=== PATIENT | male | born 1935 | race Caucasian/White ===

== ENCOUNTER 2016-01-11 11:00 | Outpatient (RCR) | payer MEDICARE, OTHER ==
[2016-01-10 10:38] LABS: BASOPHILS % (AUTO) 3 % (0-2); EOSINOPHILS % (AUTO) 0 % (0-4); LYMPHOCYTES # (AUTO) 0.7 X10^3; MEAN CORPUSCULAR HEMOGLOBIN 28.7 PG (26.0-34.0); MEAN CORPUSCULAR HGB CONC 32.3 g/dL (31.0-37.0); MEAN CORPUSCULAR VOLUME 89 FL (80-100); MEAN PLATELET VOLUME 10.4 FL (6.0-9.5); MONOCYTES # (AUTO) 0.7 X10^3; MONOCYTES % (AUTO) 14 % (3-11); NEUTROPHILS # (AUTO) 3.3 X10^3; NEUTROPHILS % (AUTO) 69 % (51-67); PLATELET COUNT 507 10^3uL (150-450); WHITE BLOOD COUNT 4.78 10^3uL (4.0-11.0)
[~2016-01-11] VITALS: Ht 167.6 cm; Wt 56.7 kg
[~2016-01-11 11:00] MED LIST: ACETAMINOPHEN 325 MG TAB (TYLENOL) PO ONE
[2016-01-11] MEDS ORDERED: diphenhydrAMINE 25 MG (BENADRYL) TABLET PO ONE (11:01)
[2016-01-11] MEDS ORDERED: SODIUM CHLORIDE FLUSH 10 ML SYR IV SCH (11:05)
[2016-01-11] MEDS ORDERED: SODIUM CHLORIDE 250 ML IV SCH (11:05)
[2016-01-11 11:49] VITALS: BP 111/49
--- NOTE | 2016-01-11 13:29 | NUR ---
1240 IV started in Right hand by PAPITO Mckeon; 20 g IV removed from the Left forearm by Chinyere Gonzales RN due to infiltration. Catheter tip intact. 1320 Increase blood infusion rate to 140 mL per hour; tolerated well.
--- NOTE | 2016-01-11 13:43 | NUR ---
1335 Increased blood transfusion rate to 175 mL/hr; pt tolerated well
--- NOTE | 2016-01-11 13:59 | NUR ---
1355 Increased blood transfustion rate to 200 mL/hr; pt tolerated well.
--- NOTE | 2016-01-11 16:30 | NUR ---
1415 Infusion complete of first unit of blood 1420 Infusion of second unit of blood started at 120 mL/hour; pt tolerated well. 1520 Increased infusion rate to 175 mL/hr. pt tolerated well. 1548 Increased infusion rate to 200 mL/hr. pt tolerated well. 1621 blood transfusion of second unit of blood complete. pt tolerated well. Iv 20g in right hand was removed due to transfusion being complete. Catheter tip was intact.
== END 2016-04-09 | disposition home or self-care (01) ==
PROVIDERS: ATTEND Internal Medicine Hematology & Oncology
DX: D64.9 Anemia, unspecified (principal); R93.8 Abnormal findings on diagnostic imaging of other specified body structures; J98.4 Other disorders of lung
CPT/HCPCS: 36415; 36430; 82565; 85025; 86850; 86900; 86901; 86920; A9270; J7050; P9040; 36000

== ENCOUNTER 2016-02-28 09:10 | Outpatient (RCR) | payer MEDICARE, OTHER ==
[2016-02-28 09:13] LABS: BASOPHILS % (AUTO) 0 % (0-2); EOSINOPHILS % (AUTO) 0 % (0-4); LYMPHOCYTES # (AUTO) 0.9 X10^3; MEAN CORPUSCULAR HEMOGLOBIN 30.9 PG (26.0-34.0); MEAN CORPUSCULAR HGB CONC 33.8 g/dL (31.0-37.0); MEAN CORPUSCULAR VOLUME 91 FL (80-100); MEAN PLATELET VOLUME 9.8 FL (6.0-9.5); MONOCYTES # (AUTO) 1.1 X10^3; MONOCYTES % (AUTO) 9 % (3-11); NEUTROPHILS # (AUTO) 10.5 X10^3; NEUTROPHILS % (AUTO) 83 % (51-67); PLATELET COUNT 228 10^3uL (150-450); WHITE BLOOD COUNT 12.64 10^3uL (4.0-11.0)
[2016-03-06 09:18] LABS: MEAN CORPUSCULAR HGB CONC 33.6 g/dL (31.0-37.0); MEAN CORPUSCULAR VOLUME 92 FL (80-100); MEAN PLATELET VOLUME 9.6 FL (6.0-9.5); PLATELET COUNT 128 10^3uL (150-450); WHITE BLOOD COUNT 13.64 10^3uL (4.0-11.0)
[2016-03-06 09:24] LABS: BAND NEUTROPHILS % 2 % (0-6); EOSINOPHILS % 1 % (0-4); LYMPHOCYTES # 0.3 #; MONOCYTES # 0.4 #; MONOCYTES % 3 % (3-11); RBC MORPH NORMAL (NORMAL); SEGMENTED NEUTROPHILS % 92 % (51-67); TOTAL CELLS COUNTED 100
[2016-03-06 19:17] LABS: IRON 209 ug/dL (65-175); UNBOUND IRON CONTENT <47 ug/dl (126-382)
[2016-03-13 09:19] LABS: MEAN CORPUSCULAR HEMOGLOBIN 30.7 PG (26.0-34.0); MEAN CORPUSCULAR VOLUME 93 FL (80-100); MEAN PLATELET VOLUME 11.4 FL (6.0-9.5); PLATELET COUNT 31 10^3uL (150-450); WHITE BLOOD COUNT 17.66 10^3uL (4.0-11.0)
[2016-03-13 09:53] LABS: ALBUMIN 3.8 g/dL (3.4-5.0); ANION GAP 15.6 MEQ/L (3-15); CALCULATED IONIZED CALCIUM 4.2 mg/dL (3.8-4.6); MAGNESIUM* 1.5 mg/dL (1.6-2.3); PHOSPHORUS 3.2 mg/dL (2.4-4.9); TOTAL PROTEIN 6.2 g/dL (6.4-8.5)
[2016-03-13 10:05] LABS: BAND NEUTROPHILS % 3 % (0-6); EOSINOPHILS % 0 % (0-4); LYMPHOCYTES # 1.4 #; MONOCYTES # 0.9 #; MONOCYTES % 5 % (3-11); SEGMENTED NEUTROPHILS % 84 % (51-67); TOTAL CELLS COUNTED 100
[2016-03-13 10:06] LABS: ANISOCYTOSIS SLIGHT; RBC MORPH SEE REFERENCE (NORMAL)
[2016-05-22 09:40] LABS: MEAN CORPUSCULAR HGB CONC 32.3 g/dL (31.0-37.0); MEAN PLATELET VOLUME 9.3 FL (6.0-9.5); PLATELET COUNT 166 10^3uL (150-450); WHITE BLOOD COUNT 3.39 10^3uL (4.0-11.0)
[2016-05-22 09:52] LABS: MEAN CORPUSCULAR HEMOGLOBIN 33.1 PG (26.0-34.0); MEAN CORPUSCULAR VOLUME 102 FL (80-100)
[2016-05-22 09:58] LABS: BAND NEUTROPHILS % 0 % (0-6); LYMPHOCYTES # 0.4 #; MONOCYTES # 0.4 #; MONOCYTES % 12 % (3-11); SEGMENTED NEUTROPHILS % 77 % (51-67); TOTAL CELLS COUNTED 100
[2016-05-22 09:59] LABS: EOSINOPHILS % 0 % (0-4); RBC MORPH NORMAL (NORMAL)
[2016-05-22 10:17] LABS: ALBUMIN 3.8 g/dL (3.4-5.0); ANION GAP 14.4 MEQ/L (3-15); CALCULATED IONIZED CALCIUM 4.2 mg/dL (3.8-4.6); MAGNESIUM* 1.9 mg/dL (1.6-2.3); PHOSPHORUS 3.6 mg/dL (2.4-4.9); TOTAL PROTEIN 6.9 g/dL (6.4-8.5)
== END 2016-05-28 | disposition home or self-care (01) ==
LOC: LAB 09:10 → EDSTATUS 09:10
PROVIDERS: ATTEND Internal Medicine Hematology & Oncology
DX: C34.11 Malignant neoplasm of upper lobe, right bronchus or lung (principal); R93.8 Abnormal findings on diagnostic imaging of other specified body structures; J98.4 Other disorders of lung
CPT/HCPCS: 36415; 80053; 82565; 82728; 83540; 83550; 83615; 83735; 84100; 85007; 85025; 85027

== ENCOUNTER 2016-04-06 13:03 | Emergency (ER) | payer MEDICARE, OTHER ==
[~2016-04-06] VITALS: Ht 167.6 cm; Wt 50.2 kg
[~2016-04-06 13:03] MED LIST changes: -LEVO88TA4 PO; -MIRT15TA98 PO; -NITR0.4T7 SL; -ONDA4TAB8 PO; -QTP25T PO; -TAMS-8 PO
[2016-04-06 13:11] VITALS: BP 130/71
--- NOTE | 2016-04-06 13:13 | NUR ---
ambulance notified for transfer. pt in triage room until ambulance arrives, dr. kearns in to do assessment
[2016-05-26] MEDS ORDERED: TAMS-8 PO (18:04)
[2016-05-26] MEDS ORDERED: LEVO88TA4 PO (18:04)
[2016-05-26] MEDS ORDERED: MIRT15TA98 PO (18:04)
[2016-05-26] MEDS ORDERED: ONDA4TAB8 PO (18:04)
[2016-05-26] MEDS ORDERED: QTP25T PO (18:04)
[2016-05-26] MEDS ORDERED: NITR0.4T7 SL (18:04)
== END 2016-04-06 13:45 | disposition short-term general hospital (02) ==
LOC: ED 13:04
DX: I62.00 Nontraumatic subdural hemorrhage, unspecified (principal); C34.11 Malignant neoplasm of upper lobe, right bronchus or lung
CPT/HCPCS: 70470; 99282; 99283

== ENCOUNTER → 2016-04-06 | Outpatient (CLI) | payer MEDICARE, OTHER ==
[~2016-04-06] MED LIST changes: -ACETAMINOPHEN 325 MG TAB (TYLENOL) PO ONE; +ASPI-586 PO; +ATOR10TA PO; +CLOP75TA28 PO; +CLOP75TA3 PO; +CRV25T PO; +DIGO125T PO; +FURO20TA4 PO; +LEVO25TA9 PO; +LEVO88TA4 PO; +LORA-405 PO; +LORA0.5T PO; +MIRT15TA98 PO; +NITR0.4T7 SL; +OMEG10005 PO; +ONDA4TAB8 PO; +QTP25T PO; +SPRN25T PO; +TAMS-8 PO; +VALS1TAB5 PO
== END ==
LOC: EMS 14:50
PROVIDERS: ATTEND Emergency Medicine
DX: I62.00 Nontraumatic subdural hemorrhage, unspecified (principal)

== ENCOUNTER → 2016-04-06 | Outpatient (CLI) | payer MEDICARE, OTHER ==
--- NOTE | 2016-04-06 13:46 | Diagnostic Imaging Report ---
PROCEDURE: CT head with and without contrast. TECHNIQUE: Multiple contiguous axial images were obtained through the brain before and after the administration of intravenous contrast. INDICATION: Lung cancer. COMPARISON: Compared 11/15/2015. FINDINGS: There is a large complex left hemispheric extra-axial subdural collection measuring a transverse thickness of 2.6 cm maximal. This extends inferiorly from the anterior cranial fossa cephalad to the vertex where it extends anterior to posterior. Within the collection, there is some curvilinear areas of increased density and findings suggest varying stages of blood products not present on the recent exam. Possibility of, in the appropriate clinical scenario, infection and subdural empyema could not be excluded. MRI may be of benefit as further evaluation. The findings result in extensive left to right shifting of the midline structures displaced anteriorly by 1.6 cm with subfalcine herniation. There is no hydrocephalus. Mass effects efface and flatten the left lateral ventricle. The third and fourth ventricles are nondilated. There is no dilatation of the temporal horns. Some chronic prominence of the extra-axial CSF along the sylvian fissures and left posterior fossa, chronic. No destructive calvarial abnormality. The mastoid air cells and middle ear cavities and paranasal sinuses as well as orbits all appeared unremarkable. There is a small right frontal convexity 8mm enhancing extra-axial nodule likely tiny meningioma which can be retrospectively seen on the prior CT and is not appreciably changed. IMPRESSION: Large complex left hemispheric subdural with left to right shift and subfalcine herniation. Findings suggest blood products of varying stages. Infection could not be excluded. MRI suggested. No hydrocephalus. Subcentimeter right frontal convexity enhancing extra-axial nodule likely unrelated meningioma. I will ensure that the ordering physician receives the results of this exam by phone. Dictated by: Dictated on workstation # [id number]
== END ==
LOC: RAD 10:22
PROVIDERS: ATTEND Internal Medicine Hematology & Oncology
DX: C34.11 Malignant neoplasm of upper lobe, right bronchus or lung (principal)
CPT/HCPCS: 70470; Q9967

== ENCOUNTER → 2016-05-01 | Outpatient (CLI) | payer MEDICARE, OTHER ==
[2016-05-01 11:31] LABS: MEAN PLATELET VOLUME 9.4 FL (6.0-9.5); PLATELET COUNT 189 10^3uL (150-450); WHITE BLOOD COUNT 4.15 10^3uL (4.0-11.0)
[2016-05-01 11:34] LABS: MEAN CORPUSCULAR HEMOGLOBIN 32.5 PG (26.0-34.0); MEAN CORPUSCULAR HGB CONC 31.7 g/dL (31.0-37.0); MEAN CORPUSCULAR VOLUME 103 FL (80-100)
[2016-05-01 12:21] LABS: ALBUMIN 3.4 g/dL (3.4-5.0); CALCULATED IONIZED CALCIUM 4.1 mg/dL (3.8-4.6); MAGNESIUM* 1.9 mg/dL (1.6-2.3); PHOSPHORUS 3.5 mg/dL (2.4-4.9); TOTAL PROTEIN 6.6 g/dL (6.4-8.5)
[2016-05-01 12:22] LABS: BAND NEUTROPHILS % 1 % (0-6); EOSINOPHILS % 0 % (0-4); LYMPHOCYTES # 0.9 #; MONOCYTES % 0 % (3-11); SEGMENTED NEUTROPHILS % 78 % (51-67); TOTAL CELLS COUNTED 100
[2016-05-01 12:23] LABS: RBC MORPH NORMAL (NORMAL)
== END ==
LOC: LAB 10:57
PROVIDERS: ATTEND Internal Medicine
DX: C34.81 Malignant neoplasm of overlapping sites of right bronchus and lung (principal); D63.8 Anemia in other chronic diseases classified elsewhere; I62.01 Nontraumatic acute subdural hemorrhage; I25.10 Atherosclerotic heart disease of native coronary artery without angina pectoris; I48.2 Chronic atrial fibrillation; E03.8 Other specified hypothyroidism
CPT/HCPCS: 36415; 80053; 83615; 83735; 84100; 84443; 85007; 85027

== ENCOUNTER → 2016-05-12 | Outpatient (CLI) | payer MEDICARE, OTHER | LOC: RAD 09:51 | PROVIDERS: ATTEND Neurological Surgery | DX: I62.03 Nontraumatic chronic subdural hemorrhage (principal) | CPT/HCPCS: 70450 ==

== ENCOUNTER → 2016-05-22 | Outpatient (CLI) | payer MEDICARE, OTHER | LOC: LAB 09:14 | PROVIDERS: ATTEND Internal Medicine | DX: E03.8 Other specified hypothyroidism (principal); I48.2 Chronic atrial fibrillation | CPT/HCPCS: 36415; 84443 ==

== ENCOUNTER → 2016-05-25 | Outpatient (CLI) | payer MEDICARE, OTHER | LOC: RAD 08:55 | PROVIDERS: ATTEND Internal Medicine Hematology & Oncology | DX: R93.8 Abnormal findings on diagnostic imaging of other specified body structures (principal); J98.4 Other disorders of lung; C34.11 Malignant neoplasm of upper lobe, right bronchus or lung | CPT/HCPCS: 71260; 74178; Q9967 ==

== ENCOUNTER 2016-05-26 11:08 | Observation (INO) | payer MEDICARE, OTHER ==
[2016-05-26] VITALS (15 sets, daily range): BP systolic 72–130; BP diastolic 40–98
[~2016-05-26] VITALS: Ht 167.6 cm; Wt 45.6 kg
[2016-05-26] MEDS ORDERED: DIGOXIN 0.125 MG (LANOXIN) TAB PO SCH ×3 (16:30→21:15)
[2016-05-26] MEDS ORDERED: ONDANSETRON 4 MG (ZOFRAN) TABLET PO PRN ×2 (16:30→17:15)
[2016-05-26] MEDS ORDERED: ACETAMINOPHEN 325 MG TAB (TYLENOL) PO PRN ×3 (16:30→17:15)
[2016-05-26] MEDS ORDERED: ONDANSETRON 4 MG (ZOFRAN) ORAL DISSOLVE TAB PO PRN (17:15)
[2016-05-26] MEDS ORDERED: ONDANSETRON 2 MG/ML (Z0FRAN) 2 ML VIAL IV PRN (17:15)
[2016-05-26] MEDS ORDERED: morphine INJ 4 MG/ML 1 ML SYRINGE IV PRN (17:15)
[2016-05-26] MEDS ORDERED: PROMETHAZINE HCL INJ 12.5 MG in SODIUM CHLORIDE 25 ML IV PRN (17:15)
[2016-05-26] MEDS ORDERED: POLYETHYLENE GLYCOL 17 GM (MIRALAX) PACKET PO PRN (17:15)
[2016-05-26] MEDS ORDERED: MAGNESIUM HYDROXIDE 80MG/ML (MILK OF MAGNESIA) 30 ML UDC PO PRN (17:15)
[2016-05-26] MEDS ORDERED: DOCUSATE SODIUM 100 MG (COLACE) CAP PO PRN (17:15)
[2016-05-26] MEDS ORDERED: MAG HYDROX/AL HYDROX/SIMETH 200-200-20/5 ML (MAG-AL PLUS) 30 ML UDC PO PRN (17:15)
[2016-05-26] MEDS ORDERED: CALCIUM CARBONATE CHEWABLE 300 MG (TUMS) TABLET PO PRN (17:15)
[2016-05-26 17:46] LABS: BASOPHILS % (AUTO) 0 % (0-2); EOSINOPHILS % (AUTO) 0 % (0-4); LYMPHOCYTES # (AUTO) 0.4 X10^3; MEAN CORPUSCULAR HGB CONC 32.8 g/dL (31.0-37.0); MEAN CORPUSCULAR VOLUME 101 FL (80-100); MEAN PLATELET VOLUME 9.9 FL (6.0-9.5); MONOCYTES # (AUTO) 0.6 X10^3; MONOCYTES % (AUTO) 8 % (3-11); NEUTROPHILS # (AUTO) 5.5 X10^3; NEUTROPHILS % (AUTO) 85 % (51-67); PLATELET COUNT 163 10^3uL (150-450); WHITE BLOOD COUNT 6.52 10^3uL (4.0-11.0)
[2016-05-26] MEDS ORDERED: CARVEDILOL 12.5 MG (COREG) TABLET PO SCH (18:00)
[2016-05-26 18:01] LABS: ALBUMIN 3.3 g/dL (3.4-5.0); ANION GAP 12.8 MEQ/L (3-15); CALCULATED IONIZED CALCIUM 4.2 mg/dL (3.8-4.6); TOTAL PROTEIN 6.2 g/dL (6.4-8.5)
[2016-05-26] MEDS ORDERED: NS FLUSH 3 ML PRN IV (18:20)
[2016-05-26] MEDS ORDERED: NS FLUSH 10 ML PRN IV (18:20)
[2016-05-26] MEDS: CARVEDILOL 12.5 MG (COREG) TABLET PO SCH (18:36)
[2016-05-26] MEDS ORDERED: NITROGLYCERIN SUBLINGUAL 0.4 MG (NITROQUICK) TABLET SL PRN (18:55)
[2016-05-26] MEDS: QUEtiapine 25 MG (SEROquel) TAB IMMEDIATE RELEASE PO SCH ×2 (21:00→23:30)
[2016-05-27 04:00] VITALS: BP 88/47
[2016-05-27] MEDS ORDERED: LEVOTHYROXINE 88 MCG (LEVOTHORID) TABLET PO SCH (06:00)
[2016-05-27 06:15] LABS: BASOPHILS % (AUTO) 0 % (0-2); EOSINOPHILS % (AUTO) 1 % (0-4); LYMPHOCYTES # (AUTO) 0.7 X10^3; MEAN CORPUSCULAR HGB CONC 32.1 g/dL (31.0-37.0); MEAN PLATELET VOLUME 10.4 FL (6.0-9.5); MONOCYTES # (AUTO) 0.4 X10^3; MONOCYTES % (AUTO) 13 % (3-11); NEUTROPHILS # (AUTO) 2.2 X10^3; NEUTROPHILS % (AUTO) 66 % (51-67); PLATELET COUNT 154 10^3uL (150-450); WHITE BLOOD COUNT 3.34 10^3uL (4.0-11.0)
[2016-05-27 06:50] LABS: MEAN CORPUSCULAR VOLUME 100 FL (80-100)
[2016-05-27] MEDS ORDERED: CARVEDILOL 25 MG (COREG) TABLET PO SCH (08:00)
[2016-05-27 08:38] VITALS: BP 97/58
[2016-05-27] MEDS ORDERED: NS FLUSH 3 ML DAILY IV SCH (09:00)
[2016-05-27] MEDS ORDERED: TAMSULOSIN 0.4 MG (FLOMAX) CAP PO SCH ×3 (09:00→10:00)
[2016-05-27] MEDS: CARVEDILOL 12.5 MG (COREG) TABLET PO SCH (09:17)
[2016-05-29] MEDS ORDERED: DIGOXIN 0.125 MG (LANOXIN) TAB PO SCH (09:00)
== END 2016-05-27 13:00 | disposition home or self-care (01) ==
LOC: ASC 11:08 → MED/SURG 15:42 → ASC 17:10
PROVIDERS: ADMIT Surgery; ATTEND Surgery
PROC: 0B9N30Z Drainage of Right Pleura with Drainage Device, Percutaneous Approach (ICD-10-PCS; principal; 2016-05-26)
DX: J94.8 Other specified pleural conditions (principal); J91.0 Malignant pleural effusion; C34.91 Malignant neoplasm of unspecified part of right bronchus or lung; J98.19 Other pulmonary collapse; I11.0 Hypertensive heart disease with heart failure; I50.22 Chronic systolic (congestive) heart failure; D64.9 Anemia, unspecified; J44.9 Chronic obstructive pulmonary disease, unspecified; E78.5 Hyperlipidemia, unspecified; E03.9 Hypothyroidism, unspecified; I25.10 Atherosclerotic heart disease of native coronary artery without angina pectoris; Z87.891 Personal history of nicotine dependence; F41.9 Anxiety disorder, unspecified
CPT/HCPCS: 32556; 36415; 71010; 71020; 80053; 85025; 86140; 87040; A9270; G0378; 87205; 99218

== ENCOUNTER → 2016-05-29 | Outpatient (CLI) | payer MEDICARE, OTHER | LOC: RAD 14:16 | PROVIDERS: ATTEND Surgery | DX: J93.9 Pneumothorax, unspecified (principal); J94.2 Hemothorax | CPT/HCPCS: 71020 ==

== ENCOUNTER → 2016-06-02 | Outpatient (CLI) | payer MEDICARE, OTHER | LOC: RAD 09:01 | PROVIDERS: ATTEND Internal Medicine Hematology & Oncology | DX: R06.09 Other forms of dyspnea (principal); J91.8 Pleural effusion in other conditions classified elsewhere; J94.8 Other specified pleural conditions | CPT/HCPCS: 71020 ==

== ENCOUNTER 2016-06-05 08:11 | Day surgery (SDC) | payer MEDICARE, OTHER ==
[2016-06-05 08:37] VITALS: BP 125/72
--- NOTE | 2016-06-05 09:16 | NUR ---
PATIENT TO X-RAY VIA CART.
[2016-06-05 09:22] VITALS: BP 108/63
--- NOTE | 2016-06-05 09:22 | NUR ---
PT RETURNS TO ROOM 7 VIA CART. REPORTS TICKLE IN THROAT.
--- NOTE | 2016-06-05 09:24 | NUR ---
PATIENT STATES HE DOES NOT FEEL SHORT OF BREATH BUT SEEMS TO BE MORE LABORED THAN PRIOR TO PROCEDURE.
== END 2016-06-05 10:03 | disposition home or self-care (01) ==
LOC: ASC 08:11
PROVIDERS: ATTEND Surgery
DX: J90 Pleural effusion, not elsewhere classified (principal); Z85.118 Personal history of other malignant neoplasm of bronchus and lung; I11.0 Hypertensive heart disease with heart failure; I50.42 Chronic combined systolic (congestive) and diastolic (congestive) heart failure; I25.10 Atherosclerotic heart disease of native coronary artery without angina pectoris; J44.9 Chronic obstructive pulmonary disease, unspecified; I25.5 Ischemic cardiomyopathy; Z95.1 Presence of aortocoronary bypass graft; Z95.810 Presence of automatic (implantable) cardiac defibrillator; Z87.891 Personal history of nicotine dependence
CPT/HCPCS: 36415; 71020; 83615; 84157; 87070; 87075; 88112; 88305

== ENCOUNTER → 2016-06-23 | Outpatient (CLI) | payer MEDICARE, OTHER ==
[~2016-06-23] MED LIST changes: +LEVO88TA4 PO; +MIRT15TA98 PO; +NITR0.4T7 SL; +ONDA4TAB8 PO; +QTP25T PO; +TAMS-8 PO
--- NOTE | 2016-06-23 14:12 | Diagnostic Imaging Report ---
INDICATION: Dyspnea. EXAMINATION: Two-view chest dated 06/23/2016. COMPARISON: 06/05/2016. FINDINGS: Two views of the chest demonstrate an effusion at the right lung base which is moderate in size. It has increased in size since previous examination. No pneumothorax appreciated. The left lung is clear. The heart is stable. The pulmonary vasculature is normal in appearance. Diffuse airspace opacities noted throughout the right upper lobe. A focal lucency in the mid right lung most likely a focal area of better-aerated lung surrounded by fluid in the adjacent fissures and infiltrate in the right upper lung. Sternotomy wires and mediastinal clips are unchanged. IMPRESSION: 1. Moderate-sized right pleural effusion is slightly increased in size from previous examination. 2. Developing infiltrate or asymmetric edema in the right upper lung, follow-up recommended. Remaining chest is stable. Report was called/stat faxed to Disha at office of Dr. Hira Bennett in [place] @ 2:09 AM/angela. Dictated by: Dictated on workstation # [id number]
== END ==
LOC: RAD 13:06
PROVIDERS: ATTEND Internal Medicine Hematology & Oncology
DX: R06.09 Other forms of dyspnea (principal); J90 Pleural effusion, not elsewhere classified
CPT/HCPCS: 71020

== ENCOUNTER → 2016-06-26 | Outpatient (CLI) | payer MEDICARE, OTHER ==
--- NOTE | 2016-06-26 10:46 | Diagnostic Imaging Report ---
PROCEDURE: CT head without contrast. TECHNIQUE: Multiple contiguous axial images were obtained through the brain without the use of intravenous contrast. INDICATION: Subdural hemorrhage. COMPARISON: 05/12/2016, 11/15/2015. FINDINGS: The size of the ventricular system is commensurate with mildly prominent sulci and fissures compatible with cerebral parenchymal volume loss. In the right parasagittal frontal region, a slightly hyperdense extra-axial 1 cm mass is present unchanged from the comparison CT scans, compatible with incidental meningioma. Old left parietal craniotomy changes are present. Small high density thickening of the dura or extra-axial fluid is noted, left posterior frontal anterior parietal region unchanged from 05/12/2016. The slightly greater than CSF density subdural fluid, left parietal region, is slightly less in depth, previously the depth was about 10 mm. Today's measurement is 5 mm. The septum pellucidum remains to the right of midline by about 5 mm, similar to the 05/12/2016 exam. Mild periventricular white matter disease is present compatible with age-related change and/or chronic microvascular ischemic change. There are no abnormally hyperdense vascular structures identified to indicate acute vessel thrombosis. IMPRESSION: 1. Interval decrease in the left subdural fluid compared to 05/12/2016. No new abnormalities are identified. Dictated by: Dictated on workstation # [id number]
== END ==
LOC: RAD 09:40
PROVIDERS: ATTEND Neurological Surgery
DX: I62.03 Nontraumatic chronic subdural hemorrhage (principal)
CPT/HCPCS: 70450

== ENCOUNTER → 2016-06-28 | Outpatient (REF) | payer MEDICARE, OTHER ==
[2016-06-28 11:42] LABS: MEAN CORPUSCULAR HEMOGLOBIN 31.3 PG (26.0-34.0); MEAN CORPUSCULAR HGB CONC 32.7 g/dL (31.0-37.0); MEAN CORPUSCULAR VOLUME 96 FL (80-100); MEAN PLATELET VOLUME 9.2 FL (6.0-9.5); PLATELET COUNT 323 10^3uL (150-450); WHITE BLOOD COUNT 21.61 10^3uL (4.0-11.0)
[2016-06-28 11:56] LABS: BAND NEUTROPHILS % 4 % (0-6); EOSINOPHILS % 0 % (0-4); LYMPHOCYTES # 0.2 #; MONOCYTES # 2.1 #; MONOCYTES % 10 % (3-11); RBC MORPH NORMAL (NORMAL); SEGMENTED NEUTROPHILS % 85 % (51-67); TOTAL CELLS COUNTED 100
[2016-06-28 11:57] LABS: ANION GAP 15.2 MEQ/L (3-15)
== END ==
LOC: LAB 11:30
PROVIDERS: ATTEND Internal Medicine
DX: C34.11 Malignant neoplasm of upper lobe, right bronchus or lung (principal); I48.2 Chronic atrial fibrillation
CPT/HCPCS: 80048; 83880; 84439; 84443; 85025; 86140

== ENCOUNTER → 2016-06-30 | Outpatient (CLI) | payer MEDICARE, OTHER ==
--- NOTE | 2016-06-30 13:44 | Diagnostic Imaging Report ---
INDICATION: Small cell lung CA. Followup of right upper lobe pneumonia. Comparison with 06/23/2016. FINDINGS: Left lung remains hyperaerated and free of infiltrates. No masses are seen on the left. Right lung continues to show dense alveolar infiltrate in the right upper lung with some scarring and volume loss in the right lower lung. The heart is not enlarged. There is no pulmonary edema. No pleural effusion is seen on the left. ICD pacer present on the left, leads appearing unchanged. Median sternotomy changes again noted. IMPRESSION: 1. No significant change since previous exam with moderate right pleural effusion and infiltrate in the right upper lung again noted. 2. Obstructive pulmonary disease on the left with no infiltrates or pleural effusions developing. Dictated by: Dictated on workstation # [id number]
== END ==
LOC: RAD 13:11
PROVIDERS: ATTEND Internal Medicine
DX: J18.9 Pneumonia, unspecified organism (principal); C34.11 Malignant neoplasm of upper lobe, right bronchus or lung; J44.9 Chronic obstructive pulmonary disease, unspecified; J90 Pleural effusion, not elsewhere classified
CPT/HCPCS: 71020

== ENCOUNTER → 2016-07-06 | Outpatient (CLI) | payer MEDICARE, OTHER ==
[~2016-07-06] MED LIST changes: +CARV12.5 PO
[2016-07-06 09:24] LABS: MEAN CORPUSCULAR HEMOGLOBIN 29.9 PG (26.0-34.0); MEAN CORPUSCULAR VOLUME 96 FL (80-100); MEAN PLATELET VOLUME 9.2 FL (6.0-9.5); PLATELET COUNT 297 10^3uL (150-450); WHITE BLOOD COUNT 9.81 10^3uL (4.0-11.0)
[2016-07-06 09:27] LABS: MEAN CORPUSCULAR HGB CONC 31.3 g/dL (31.0-37.0)
[2016-07-06 09:42] LABS: BAND NEUTROPHILS % 1 % (0-6); EOSINOPHILS % 0 % (0-4); HYPOCHROMASIA SLIGHT; LYMPHOCYTES # 0.4 #; MONOCYTES # 1.5 #; MONOCYTES % 17 % (3-11); RBC MORPH SEE REFERENCE (NORMAL); SEGMENTED NEUTROPHILS % 76 % (51-67); TOTAL CELLS COUNTED 100
[2016-07-06 09:43] LABS: ALBUMIN 2.1 g/dL (3.4-5.0); ANION GAP 11.3 MEQ/L (3-15); CALCULATED IONIZED CALCIUM 4.2 mg/dL (3.8-4.6); PHOSPHORUS 3.9 mg/dL (2.4-4.9); TOTAL PROTEIN 4.8 g/dL (6.4-8.5)
== END ==
LOC: EDBD → LAB 09:04
PROVIDERS: ATTEND Internal Medicine Hematology & Oncology
DX: C34.11 Malignant neoplasm of upper lobe, right bronchus or lung (principal)
CPT/HCPCS: 36415; 80053; 83615; 83735; 84100; 85007; 85027

== ENCOUNTER → 2016-07-07 | Outpatient (CLI) | payer MEDICARE, OTHER ==
--- NOTE | 2016-07-07 16:12 | Diagnostic Imaging Report ---
PROCEDURE: CT chest pelvis with and abdomen with and without contrast. TECHNIQUE: Multiple contiguous axial images were obtained through the chest, abdomen and pelvis after uneventful bolus administration of intravenous contrast. Precontrast acquisitions were acquired through the abdomen. INDICATION: Lung cancer. COMPARISON: 05/25/2016. CT CHEST / FINDINGS There has been substantial reduction in right pleural fluid volume. There is much improved aeration of the mid to upper third of the right lung. Residual pleural fluid is predominately subpulmonic. There is no pneumothorax. Previously the middle and lower lobes were completely atelectatic, both substantially better aerated on followup. Interstitial thickening and groundglass opacities in the right apex have progressed. This could be edema or pneumonia. Lymphangitic spread of tumor could not be entirely excluded and given the change, followup recommended. There is left upper lung suprahilar soft tissue lesion, better visualized at this exam, previously obscured by adjacent drowned consolidated lung. This is suspicious for an underlying mass measuring 3.7 x 2.9 cm. A left-sided AP window lymph node with a thickness of 9 mm, previously measured 10 mm. There is tissue along the posterior wall of the right mainstem bronchus that effaces its dorsal aspect and is unchanged. There is a tiny left pleural effusion, unchanged. There is spondylosis and underlying chronic bony demineralization noted. This combination results in heterogeneity of osseous density, not obviously changed but limits sensitivity for detecting bony metastatic disease. Areas of sclerosis in the right sixth rib posteriorly and laterally noted and suspicious. A few additional punctate areas of sclerosis, indeterminate. Whole-body bone scan may provide additional utility. Previous sternotomy noted without dehiscence. CT ABDOMEN AND PELVIS / FINDINGS: A few tiny low-density hepatic foci showed no change from the previous study. While they are too small to be definitively characterized, the densities are felt more suggestive of cyst than solid masses. No biliary dilatation. The patient's pancreas appeared unremarkable. There are multiple bilateral renal cortical cysts, some of which are hyperdense and hemorrhagic, overall unchanged from the prior. Nonobstructing right renal calculus, stable. There is no adrenal mass. No pathologic-appearing abdominal, pelvic, mesenteric or retroperitoneal lymph nodes are found. Previous fatty right inguinal hernia is present, that persists however now through the defect is protruding cecum and terminal ileum, this is nonobstructive. Aortoiliac atherosclerotic calcifications nonaneurysmal and chronic. There is no ascites, abscess, hematoma or other fluid collection. Osteopenia and arthritis to the pelvic osseous structures noted without fracture. No discrete suspect lytic or sclerotic lesion. There is lumbar spondylosis. IMPRESSION: CHEST: 1. The suprahilar right lung mass is better visualized owing to improved adjacent aeration. New interstitial infiltrates in the right upper lobe may reflect pneumonia, edema or lymphangitic spread of tumor. 2. Reduction in right pleural fluid, the residual fluid predominately subpulmonic as well as likely partially loculated anteriorly and laterally. 3. AP window lymph node is smaller, tissue in the subcarinal mediastinum distorts the posterior wall of the right mainstem bronchus, unchanged. 4. No pneumothorax. 5. Some sclerosis in the right sixth rib as well as generalized patchy heterogeneity of osseous density, indeterminate between a combination of osteoporosis and hypertrophic degenerative change versus metastatic disease. Bone scan is suggested if not are ready performed at an outside facility. ABDOMEN / PELVIS: 1. Fatty right inguinal hernia now contains protruding cecum and nonobstructive terminal ileum. 2. Low-density hepatic foci, unchanged, believed to be cysts. Bilateral renal cortical cysts, greater left. Many are simple however others are hyperdense and hemorrhagic. No appreciable enhancing renal mass. 3. Nonobstructing right renal calculus, no pathological appearing adenopathy. Dictated by: Dictated on workstation # [id number]
== END ==
LOC: EDBD → RAD 08:54
PROVIDERS: ATTEND Internal Medicine Hematology & Oncology
DX: C34.11 Malignant neoplasm of upper lobe, right bronchus or lung (principal); R93.8 Abnormal findings on diagnostic imaging of other specified body structures; J98.4 Other disorders of lung
CPT/HCPCS: 71260; 74178; Q9967

== ENCOUNTER 2016-07-08 23:25 | Emergency (ER) | payer MEDICARE, OTHER ==
[~2016-07-08] VITALS: Ht 165.1 cm; Wt 49.9 kg
[~2016-07-08 23:25] MED LIST changes: -CARV12.5 PO
--- NOTE | 2016-07-08 23:45 | NUR ---
Pt presents to ER ambulatory, accompanied by , with c/o left arm pain. Describes pain as achy with numbness and coldness in left hand. Pt states he can't feel his hand. Hand does appear paler than rest of extremity, but is warm to touch with good cap refill. Onset nearly bedtime. No other concerns presented. Left side radial pulse more difficult to palpate than right.
--- NOTE | 2016-07-09 00:20 | NUR ---
Radial pulses identified using doppler bilaterally with Dr. White.
[2016-07-09] MEDS ORDERED: SODIUM CHLORIDE FLUSH 10 ML SYR IV PRN (00:55)
[2016-07-09] MEDS ORDERED: SODIUM CHLORIDE FLUSH 3 ML SYR IV PRN (00:55)
--- NOTE | 2016-07-09 01:05 | NUR ---
IV site obtained, 1st attempt, RAC, 22G with lab blood draw.
[2016-07-09 01:26] LABS: MEAN CORPUSCULAR HEMOGLOBIN 30.8 PG (26.0-34.0); MEAN CORPUSCULAR HGB CONC 32.2 g/dL (31.0-37.0); MEAN CORPUSCULAR VOLUME 96 FL (80-100); MEAN PLATELET VOLUME 9.4 FL (6.0-9.5); PLATELET COUNT 302 10^3uL (150-450); WHITE BLOOD COUNT 11.35 10^3uL (4.0-11.0)
[2016-07-09] MEDS ORDERED: CARV12.5 PO (01:34)
[2016-07-09 01:37] LABS: ALBUMIN 2.3 g/dL (3.4-5.0); CALCULATED IONIZED CALCIUM 4.1 mg/dL (3.8-4.6); TOTAL PROTEIN 5.3 g/dL (6.4-8.5)
[2016-07-09 02:14] LABS: BAND NEUTROPHILS % 0 % (0-6); EOSINOPHILS % 0 % (0-4); LYMPHOCYTES # 1.4 #; MONOCYTES # 0.4 #; MONOCYTES % 4 % (3-11); SEGMENTED NEUTROPHILS % 84 % (51-67); TOTAL CELLS COUNTED 100
[2016-07-09 02:15] LABS: ANISOCYTOSIS MARKED; HYPOCHROMASIA MODERATE; POIKILOCYTOSIS MODERATE; POLYCHROMASIA SLIGHT
[2016-07-09 02:16] LABS: RBC MORPH SEE REFERENCE (NORMAL)
--- NOTE | 2016-07-09 03:13 | NUR ---
Pt dismissed to home with instructions. Pt and spouse stated their understanding. No other concerns or questions. Pt left ambulatory to POV. IV site discontinued at 0300.
[2016-07-09 03:18] VITALS: BP 116/58
== END 2016-07-09 03:13 | disposition home or self-care (01) ==
LOC: EDBD → ED 23:26
DX: R20.2 Paresthesia of skin (principal); R20.8 Other disturbances of skin sensation; M79.622 Pain in left upper arm; M79.632 Pain in left forearm
CPT/HCPCS: 36415; 80053; 84484; 85025; 85379; 93005; 93010; 99284

== ENCOUNTER → 2016-07-11 | Outpatient (CLI) | payer MEDICARE, OTHER ==
[~2016-07-11] MED LIST changes: +CARV12.5 PO
--- NOTE | 2016-07-11 17:20 | Diagnostic Imaging Report ---
CLINICAL INDICATION: Patient with right arm pain and swelling. COMPARISON: None. PROCEDURE: Real-time right upper extremity venous Doppler duplex evaluation is performed from the IJV and subclavian vein through the radial and ulnar veins. Cephalic and basilic veins are also evaluated. FINDINGS: There is concern for thrombosis of a venous structure which may arise from the brachial vein or is adjacent to the brachial vein. There is no thrombus seen within the brachial vein. Otherwise, the remainder of the superficial and deep venous structures of the right arm are patent. The radial and ulnar veins are patent. The cephalic and basilic veins are patent without thrombosis seen. There is swelling of the right forearm region. There are lymph nodes seen in the right neck region. IMPRESSION: 1: There is concern for possible thrombosis of a small venous structure which is either branching from or adjacent to the patent brachial vein. 2: Otherwise, the remainder of the right upper extremity shows no evidence of deep venous thrombosis. 3: There is swelling of the right forearm region. Results of this report were discussed with Dr. Hira Bennett via the telephone on 07/11/2016 at 1714 hours. Dictated by: Dictated on workstation # [id number]
[2016-07-12 18:05] LABS: IRON 28 ug/dL (65-175); UNBOUND IRON CONTENT 118 ug/dl (126-382)
== END ==
LOC: EDBD → RAD 16:17
PROVIDERS: ATTEND Internal Medicine Hematology & Oncology
DX: R53.83 Other fatigue (principal); D64.9 Anemia, unspecified; M79.601 Pain in right arm
CPT/HCPCS: 36415; 82728; 83540; 83550

== ENCOUNTER → 2016-07-18 | Outpatient (CLI) | payer MEDICARE, OTHER ==
--- NOTE | 2016-07-18 13:45 | Diagnostic Imaging Report ---
INDICATION: Swelling in right arm. COMPARISON: 07/11/2016. FINDINGS: The small brachial branch showing thrombus in the upper arm is again noted and unchanged. The deep venous system remains patent. There is normal color flow throughout the axillary, subclavian, and jugular vein. IMPRESSION: Review of previous CT scan on 07/07/2016 does show axillary adenopathy increasing on the right with increasing adjacent edema in the axillary fat. This has developed since 05/25/2016 CT scan. 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 These findings were discussed with Dr. Cabrera. Dictated by: Dictated on workstation # [id number]
== END ==
LOC: RAD 10:39
PROVIDERS: ATTEND Internal Medicine
DX: M79.601 Pain in right arm (principal); M79.89 Other specified soft tissue disorders